=== PATIENT | male | born 1950 | race Caucasian/White ===

== ENCOUNTER 2017-05-06 08:15 | Day surgery (SDC) | payer MEDICAID ==
[~2017-05-06] VITALS: Ht 172.7 cm; Wt 79.8 kg
[~2017-05-06 08:15] MED LIST: ALLO300T2 PO; BISA-81 PO; DICL100G31 TP; FAMO20TA8 PO; FISH1CAP38 PO; LISI-604 PO; METO-298 PO; MULT-1008 PO; NAPR-679 PO; SIMV20TA6 PO
[2017-05-06 09:10] LABS: HEMOGLOBIN 13.8 g/dL (14.0-18.0); MEAN CORPUSCULAR HEMOGLOBIN 26.7 pg (28.0-32.0); MEAN CORPUSCULAR VOLUME 79.5 fL (80.0-94.0); PLATELET 249 x1000/uL (130-400); RED BLOOD CELL COUNT 5.16 mill/uL (4.7-6.1); RED CELL DISTRIBUTION WIDTH 15.5 % (11.6-14.6)
[2017-05-06 09:18] LABS: INR 1.1; PROTHROMBIN TIME 11.4 sec
[2017-05-06 09:20] LABS: CHLORIDE 100 mEq/L (98-107)
[2017-05-06 09:26] LABS: CARBON DIOXIDE 27 mEq/L (21-32)
[2017-05-06] MEDS ORDERED: NICARDIPINE 100MCG/ML 10ML VIAL (CATH LAB) IV ONE (10:00)
[2017-05-06] MEDS ORDERED: NITROGLYCERIN 50MCG/ML 10ML VIAL (CATH LAB) IV ONE (10:00)
[2017-05-06] MEDS ORDERED: IOHEXOL-300 100 ML BOTTLE ONE (10:03)
[2017-05-06] MEDS ORDERED: LIDOCAINE HCL 1% 20ML VIAL (Pyxis) INJ ONE (10:03)
[2017-05-06] MEDS ORDERED: MIDAZOLAM HCL 2 MG/2 ML VIAL ONE (10:07)
[2017-05-06] MEDS ORDERED: FENTANYL CITRATE/PF 50MCG/ML 2ML VIAL ONE (10:08)
[2017-05-06] MEDS ORDERED: HEPARIN SODIUM 1,000 UNIT/1ML VIAL IV ONE (10:08)
[2017-05-06] MEDS ORDERED: ONDANSETRON HCL 4MG/2ML VIAL IV PRN (10:45)
[2017-05-06] MEDS ORDERED: ACETAMINOPHEN 325MG TABLET PO PRN (10:45)
[2017-05-06] MEDS ORDERED: MORPHINE SULFATE 2 MG/ML CPJ (NOT FOR IM USE) IV PRN (10:45)
== END 2017-05-06 14:00 | disposition home or self-care (01) ==
LOC: CCL 08:15
PROVIDERS: ATTEND Internal Medicine Cardiovascular Disease
DX: I25.10 Atherosclerotic heart disease of native coronary artery without angina pectoris (principal); I10 Essential (primary) hypertension; E78.5 Hyperlipidemia, unspecified; I25.2 Old myocardial infarction; M19.90 Unspecified osteoarthritis, unspecified site; Z90.49 Acquired absence of other specified parts of digestive tract; Z96.652 Presence of left artificial knee joint
CPT/HCPCS: 36415; 80048; 85027; 85610; 85730; 93458; 99152; C1769; C1887; C1893; J1644; J2250; J3010; J3490; J7042; Q9967